=== PATIENT | male | born 1945 | race Hispanic/Latino ===

== ENCOUNTER 2017-10-09 13:08 | Outpatient (CLI) | payer MEDICARE, BC | END 2017-10-09 13:09 | disposition home or self-care (01) | LOC: BICULT 13:08 | PROVIDERS: ATTEND Specialist | DX: I73.9 Peripheral vascular disease, unspecified (principal) | CPT/HCPCS: 93923 ==

== ENCOUNTER 2017-10-29 09:46 | Outpatient (CLI) | payer MEDICARE, BC ==
[2017-10-29 10:30] LABS: Estimated GFR-MDRD - POC Greater than 90
--- NOTE | 2017-10-29 12:17 | MRI ---
PRE AND POST CONTRAST ENHANCED MRI OF THE LUMBAR SPINE: History: Weakness. History of myeloma. Technique: Multiplanar, multisequence pre and post contrast enhanced MRI images were obtained of the lumbar spine. Comparison: 03-09-15 FINDINGS: There is grade I anterolisthesis of L4 on L5. Multiple old compression fractures seen in the superior endplate of T12, L1, L2, L3 as well as superi or and inferior endplates of L4. These all appear to be old and are unchanged since the 2014 exam. Mu ltilevel facet hypertrophy is seen in the entire lumbar spine, unchanged since the previous compariso n exam. 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 Multilevel facet hypertrophy and broad base d disc bulges are seen at L1-2, L2-3, and L3-4 resulting in mild central and lateral recess stenosis. L4-5: There is a broad based disc bulge with bilateral facet and ligamentum flavum hypertrophy. Conge nitially short pedicles are seen. This results in moderate severe central and lateral recess stenosis with mild to moderate bilateral neural foraminal narrowing. These findings are stable and unchanged since the previous comparison exam. L5-S1: Disc desiccation is seen. There is a broad based disc protrusion in the left L5-S1 neural fora men and far lateral region. This is unchanged since the previous comparison exam. There is moderate t o severe left sided neural foraminal narrowing seen. IMPRESSION: 1. Multilevel old endplate fractures. Marrow signal in unchanged. No acute marrow signal abnormality is seen. Multilevel spinal stenosis seen. Most significant level at L4-5. 2. No definite evidence of abnormal areas of enhancement seen to suggest newly developed masses or le sions in the lumbar spine. POS: BOB
== END 2017-10-29 09:47 | disposition home or self-care (01) ==
LOC: SCSMRI 09:46
PROVIDERS: ATTEND Internal Medicine Hematology & Oncology
DX: C90.00 Multiple myeloma not having achieved remission (principal); M62.81 Muscle weakness (generalized); M48.061 Spinal stenosis, lumbar region without neurogenic claudication
CPT/HCPCS: 72158; 82565

== ENCOUNTER 2018-01-07 07:26 | Outpatient (CLI) | payer MEDICARE, BC | END 2018-01-07 07:27 | disposition home or self-care (01) | LOC: BICCT 07:26 | PROVIDERS: ATTEND Surgery | DX: M51.16 Intervertebral disc disorders with radiculopathy, lumbar region (principal); M48.061 Spinal stenosis, lumbar region without neurogenic claudication; M43.16 Spondylolisthesis, lumbar region; C90.00 Multiple myeloma not having achieved remission; M99.83 Other biomechanical lesions of lumbar region | CPT/HCPCS: 72110; 72131 ==

== ENCOUNTER 2018-02-24 11:42 | Outpatient (CLI) | payer MEDICARE, BC ==
[2018-02-24 13:20] LABS: Hemoglobin 14.4 g/dL (14.0-18.0); Mean Corpuscular HGB CONC 33.9 g/dL (32.0-36.0); Mean Corpuscular Hemoglobin 32.6 pg (27.0-31.0); Mean Platelet Volume 7.3 fL (7.4-10.4); Platelet Count 152 thou/uL (130-400); RBC Distribution Width 11.8 % (11.5-14.5); Red Blood Cell (RBC) Count 4.41 mill/uL (4.70-6.10); White Blood Cell (WBC) Count 6.9 thou/uL (4.8-10.8)
[2018-02-24 13:30] LABS: PTT 31.5 SEC (22.9-36.1); Prothrombin Time 13.1 SEC (12.0-14.7)
[2018-02-24 13:48] LABS: Anion Gap 11 mmol/L (10-20); BUN (Urea Nitrogen) 15 mg/dL (8.4-25.7); Calc. Creatinine Clearance 0 mL/min (70-130); Calcium 9.3 mg/dL (7.8-10.44); Carbon Dioxide 24 mmol/L (23-31); Chloride 104 mmol/L (98-107); Estimated GFR-MDRD 85; Glucose 92 mg/dL (83-110); Potassium 4.3 mmol/L (3.5-5.1); Sodium 135 mmol/L (136-145)
--- NOTE | 2018-02-25 07:54 | EKG ---
Test Reason : Blood Pressure : / mmHG Vent. Rate : 070 BPM Atrial Rate : 070 BPM P-R Int : 152 ms QRS Dur : 086 ms QT Int : 386 ms P-R-T Axes : 052 031 009 degrees QTc Int : 416 ms Normal sinus rhythm Cannot rule out Anterior infarct , age undetermined (Doubtful) Abnormal ECG When compared with ECG of 27-MAR-2013 09:09, Vent. rate has decreased BY 36 BPM Nonspecific T wave abnormality no longer evident in Lateral leads Confirmed by MARE CARTAGENA ([id number]) on 02/25/2018 7:54:10 AM Referred By: SHUKRI Confirmed By:MARE CARTAGENA
== END 2018-02-24 11:43 | disposition home or self-care (01) ==
LOC: LABBT 11:42
PROVIDERS: ATTEND Surgery
DX: Z01.818 Encounter for other preprocedural examination (principal); M54.16 Radiculopathy, lumbar region; M48.061 Spinal stenosis, lumbar region without neurogenic claudication
CPT/HCPCS: 80048; 85027; 85610; 85730; 93005; 93010

== ENCOUNTER 2018-03-03 09:36 | Day surgery (SDC) | payer MEDICARE, BC ==
[2018-03-03] MEDS ORDERED: Bacitracin Zinc Ointment 30 gm TUBE ONE (09:55)
[2018-03-03] MEDS ORDERED: Thrombin 5000 UNITS/5 ML VIAL ONE (09:55)
[2018-03-03] MEDS ORDERED: Sodium Chloride 0.9% 10 ML ONE (09:55)
[2018-03-03] MEDS ORDERED: Fentanyl 100 MCG/2 ML VIAL ONE (10:30)
[2018-03-03] MEDS ORDERED: Midazolam HCl 2 mg/2 ml Vial ONE (10:30)
[2018-03-03] MEDS ORDERED: CEFAZOLIN/Water 2 GM/20 ML SYRINGE ONE (10:33)
--- NOTE | 2018-03-03 12:12 | OP ---
DATE OF PROCEDURE: 03/03/2018 OR: OR #11. WOUND TYPE: Type 1 wound. SURGEON: Osiel Myers M.D. SKIN LAP BONDER: Jason Schultz PA-C. PREPROCEDURE DIAGNOSES: Lumbar stenosis with low back and leg pain with lumbar spondylolisthesis. POSTPROCEDURE DIAGNOSES: Lumbar stenosis with low back and leg pain with lumbar spondylolisthesis. PROCEDURE: L4-L5 laminectomy, partial facetectomy, foraminotomies over the L4-L5 nerve roots. DESCRIPTION OF PROCEDURE: After informed consent was obtained from the patient, the patient brought to OR 11. Proper patient pause and identification was carried out. He was placed under excellent ge neral endotracheal anesthesia and positioned prone on the OR table. All appropriate points padded. We identified the L4-L5 dorsal spines. A linear diana was made over this region. This area sterilely cleansed, prepared, and draped. Proper patient pause and identification was carried out. The wound was then opened combination of sharp, monopolar and blunt dissection. The L4-L5 dorsal spines, lami na and facet complexes were exposed. Localization film confirmed our area of interest. We then perf ormed L4-L5 laminectomy, partial facetectomy, foraminotomies with excellent decompression of the comm on dural tube, the L4 and L5 nerve roots. Hemostasis was maximized throughout. The wound was copiou sly irrigated. We then closed the wound in anatomic layers following sprinkle vancomycin powder. Th e patient then emerged from anesthesia.
[2018-03-03] MEDS ORDERED: traMADol HCl 50 MG TAB PO PRN (12:30)
[2018-03-03] MEDS ORDERED: Promethazine HCl 25 MG/ML VIAL IM PRN ×2 (12:30→13:44)
[2018-03-03] MEDS ORDERED: Bisacodyl 10 MG SUPP PR PRN (12:30)
[2018-03-03] MEDS ORDERED: tiZANidine HCl 4 MG TAB PO PRN (12:30)
[2018-03-03] MEDS ORDERED: Fleet Enema 133 ML BOT PR PRN (12:30)
[2018-03-03] MEDS ORDERED: Mag-Al 1200 mg/1200 mg/30 ML UDCUP PO PRN (12:30)
[2018-03-03] MEDS ORDERED: Milk Of Magnesia 30 ML UDCUP PO PRN (12:30)
[2018-03-03] MEDS ORDERED: Acetaminophen/Codeine 30-300mg Tablet PO PRN (12:30)
[2018-03-03] MEDS ORDERED: Acetaminophen 325 MG TAB PO PRN (12:30)
[2018-03-03] MEDS ORDERED: PROPOFOL 200 MG/20 ML VIAL ONE (13:06)
[2018-03-03] MEDS ORDERED: Dexamethasone 20 MG/5 ML VIAL ONE (13:06)
[2018-03-03] MEDS ORDERED: Ondansetron HCl/PF 4 MG/2 ML Vial ONE (13:06)
[2018-03-03] MEDS ORDERED: Glycopyrrolate 0.2 MG/ML 5 ML SYRINGE ONE (13:06)
[2018-03-03] MEDS ORDERED: Ondansetron HCl/PF 4 MG/2 ML Vial IVP PRN (13:44)
[2018-03-03] MEDS ORDERED: Promethazine HCl 25 MG/ML VIAL SLOW IVP PRN (13:44)
[2018-03-03 15:36] VITALS: BMI 30.6
[2018-03-03] MEDS: Sodium Chloride 0.9% 1,000 ML IV SCH (16:33)
[2018-03-03] MEDS: CEFAZOLIN/Water 2 GM/20 ML SYRINGE SLOW IVP SCH (20:59)
[2018-03-03] MEDS ORDERED: Losartan 25 MG TAB PO SCH (21:00)
[2018-03-03] MEDS ORDERED: Atorvastatin Calcium 40 MG TAB PO SCH (21:00)
[2018-03-03] MEDS ORDERED: Loratadine 10 MG TAB PO SCH (21:00)
[2018-03-03] MEDS ORDERED: levETIRAcetam 500 MG TAB PO SCH (21:00)
[2018-03-03] MEDS: HYDROcodone/Acetaminophen 7.5/325 mg Tablet PO PRN (21:04)
[2018-03-03] MEDS: Acyclovir 800 mg Tablet PO SCH (21:44)
[2018-03-04] MEDS: CEFAZOLIN/Water 2 GM/20 ML SYRINGE SLOW IVP SCH (04:59)
[2018-03-04] MEDS ORDERED: Levothyroxine Sodium 25 MCG TAB PO SCH (06:00)
[2018-03-04] MEDS: Sodium Chloride 0.9% 1,000 ML IV SCH (08:19)
[2018-03-04] MEDS ORDERED: Famotidine 20 MG TAB PO SCH (09:00)
[2018-03-04] MEDS ORDERED: Loratadine 10 MG TAB PO SCH (09:00)
[2018-03-04] MEDS ORDERED: Multivit, Therapeutic 1 TAB PO SCH (09:00)
[2018-03-04] MEDS ORDERED: Tamsulosin HCl 0.4 MG CAP PO SCH (09:00)
[2018-03-04] MEDS: HYDROcodone/Acetaminophen 7.5/325 mg Tablet PO PRN (09:19)
[2018-03-04] MEDS: Acyclovir 800 mg Tablet PO SCH (10:21)
--- NOTE | 2018-03-04 10:46 | PRG ---
DATE OF SERVICE: 03/04/2018 SUBJECTIVE: Mr. Arreguin is postoperative day #1 from L4-L5 laminectomy. He is doing well. He state s improvement in regards to his strength in the legs. He does feel as if he may have yesterday . He has good strength and his wound is healing well. I have asked that he hold his aspirin for 1 w morongo and his Plavix for 2 weeks along with his chemotherapy until his wound is completely healed.
[2018-03-04 11:20] VITALS: BP 124/77; TEMP 98.9
== END 2018-03-04 15:11 | disposition home or self-care (01) ==
LOC: SDC 09:36 → SURG B 12:30 → SDC 03-04 15:11
PROVIDERS: ATTEND Surgery
PROC: 01NB0ZZ Release Lumbar Nerve, Open Approach (ICD-10-PCS; principal; 2018-03-03)
DX: M48.061 Spinal stenosis, lumbar region without neurogenic claudication (principal); M43.16 Spondylolisthesis, lumbar region; Z88.2 Allergy status to sulfonamides; Z88.8 Allergy status to other drugs, medicaments and biological substances
CPT/HCPCS: 76001; 96374; 96376; J1100; J2250; J2405; J2704; J3010; J3370; J3490

== ENCOUNTER 2018-07-28 10:32 | Outpatient (CLI) | payer MEDICARE, BC ==
--- NOTE | 2018-07-28 11:12 | RAD ---
FRONTAL PELVIS WITH FROGLEG LATERAL EACH HIP: DATE: 07/28/2018. PROVIDED CLINICAL HISTORY: Right hip pain. FINDINGS: There is no evidence for a fracture or other acute osseous abnormality. Alignment appears anatomic. Joint spaces appear preserved. No focal lytic or blastic lesions are seen. IMPRESSION: No evidence for an acute osseous abnormality or significant arthropathy. POS: OFF
== END 2018-07-28 10:33 | disposition home or self-care (01) ==
LOC: BICRAD 10:32
PROVIDERS: ATTEND Specialist
DX: M25.551 Pain in right hip (principal); M25.552 Pain in left hip
CPT/HCPCS: 73522